=== PATIENT | female | born 1965 | race Caucasian/White ===

== ENCOUNTER 2022-11-03 09:26 | Outpatient (CLI) | payer BC, SELFPAY | END 2022-11-03 09:27 | disposition home or self-care (01) | PROVIDERS: Visit Provider Family Medicine | DX: M53.3 Sacrococcygeal disorders, not elsewhere classified (principal) | CPT/HCPCS: 27096; J0702; Q9966 ==

== ENCOUNTER 2024-08-10 13:27 | Outpatient (CLI) | payer BC, SELFPAY ==
--- NOTE | 2024-08-10 13:45 | MR_ITS ---
[facility] [address] [facility] [address] Phone:?[phone] Fax:?[phone] Referring Physician Information: Tobi Rodriguez M.D. [address] [facility] [address] Phone:?[phone] Fax:?[phone] Patient:Le Larson Eda.Raquel.B:?1965 Sex:?Female Phone:?[phone] [facility] MRN:?[id number] Exam Date:?08/10/2024 EXAM: MRI of the RIGHT SHOULDER, without contrast CLINICAL: Evaluate for rotator cuff tear. COMPARISONS: MRI 03/01/18. TECHNICAL: Multiplanar multisequence MRI of the right shoulder was obtained. SEDATION: None. CONTRAST: None. FINDINGS: Rotator cuff: Supraspinatus/Infraspinatus: There is full-thickness tearing of the distal supraspinatus tendon with retraction of torn tendon fibers to the level of the mid to medial humeral head as seen on coronal series 5 images 10-12. Tendinosis and partial tearing involves the remaining posterior supraspinatus tendon on coronal series 5 image 13-14. There is moderate tendinosis of the distal infraspinatus tendon. Mild partial tearing of the anterior infraspinatus tendon with small adjacent ganglion cyst formation as seen on sagittal series 9 images 10-12. No significant fatty atrophy of the muscle belly. Teres minor: No tendinosis, tear or atrophy. Subscapularis: There is mild to moderate tendinosis and mild partial interstitial tearing of the subscapularis tendon. No significant fatty atrophy of the muscle belly. Bursae: Subacromial-subdeltoid: Increased bursal fluid may be secondary to full- thickness rotator cuff tendon tearing. Subcoracoid: No significant bursal fluid. Coracoacromial arch: Acromion morphology: Type II. No os acromiale. Acromiohumeral space: Within normal limits. Coracohumeral space: Within normal limits. Biceps tendon, long head: Dislocated medially from the bicipital groove onto the lesser tuberosity of the proximal humerus. No evidence of tendon rupture. Glenohumeral joint: Relatively small glenohumeral joint effusion is present with mild synovitis involving the axillary recess. Articular cartilage: No significant chondral loss. Capsule: No convincing evidence of capsular thickening or injury. Labrum: There is mild focal tearing of the posterior labrum on axial series 4 image 16. No additional discrete labral tear identified. No perilabral cyst identified. Bones: No suspicious marrow signal alteration, fracture or dislocation. Acromioclavicular joint: Mild degenerative hypertrophic change. No AC joint injury/widening. There is an apparent focal pulmonary nodule involving the peripheral anterior upper lobe of the right lung on axial series 3 image 16. IMPRESSION: 1. Full-thickness tearing of the distal supraspinatus tendon with retraction of torn tendon fibers to the level of the mid to medial humeral head. Tendinosis and partial tearing involving the remaining posterior supraspinatus tendon. There is moderate tendinosis of the distal infraspinatus tendon with mild partial tearing and small adjacent ganglion cyst formation involving the anterior infraspinatus tendon. 2. Mild to moderate tendinosis and mild partial interstitial tearing of the subscapularis tendon. 3. Medial dislocation of the long head biceps tendon from the bicipital groove onto the lesser tuberosity of the proximal humerus. 4. Mild focal tearing of the posterior labrum. 5. Mild degenerative hypertrophic change involving the AC joint. 5. Apparent focal pulmonary nodule involving the peripheral anterior upper lobe of the right lung. Recommend follow-up with dedicated chest CT for further evaluation. JCZ Electronically signed on 08/10/2024 3:39:00 PM by Jeb Alexandre D.O.
== END 2024-08-10 13:28 | disposition home or self-care (01) ==
LOC: MRI 13:28
PROVIDERS: PCP Family Medicine; Visit Provider Orthopaedic Surgery Sports Medicine
DX: M75.111 Incomplete rotator cuff tear or rupture of right shoulder, not specified as traumatic (principal); M75.101 Unspecified rotator cuff tear or rupture of right shoulder, not specified as traumatic; S43.084A Other dislocation of right shoulder joint, initial encounter; R91.8 Other nonspecific abnormal finding of lung field
CPT/HCPCS: 73221

== ENCOUNTER 2024-08-18 14:48 | Outpatient (CLI) | payer BC, SELFPAY ==
--- NOTE | 2024-08-18 15:00 | CRLHL7_ITS ---
For Patients: As a result of the Century Cures Act, medical imaging exams and procedure reports are released immediately into your electronic medical record. You may view this report before your referring provider. If you have questions, please contact your health care provider. INDICATION: Right upper lobe pulmonary nodule seen on shoulder MRI TECHNIQUE: CT chest without contrast. COMPARISON: 08/10/2024 shoulder MRI. FINDINGS: Lungs and pleura: 5 mm nodule anterior right upper lobe image 15 series 3. This corresponds to the MRI finding. No other nodules. No pleural effusions, pleural thickening, or pneumothorax. Heart and vasculature: Heart size is normal. Thoracic aorta and pulmonary artery are normal in caliber. Lymph nodes/mediastinum: No mediastinal, hilar, or axillary adenopathy. Thyroid gland is normal. Chest wall: No masses. Upper abdomen: Normal. Bones: Unremarkable for age. IMPRESSION: 4 mm solitary right upper lobe pulmonary nodule. Please see follow-up guidelines below. [employer] GUID[employer]IN[employer] - SOLID NODULES: SINGLE LOW RISK - nodule less than 6 mm: No routine follow-up. - nodule 6-8 mm: CT at 6-12 months, then consider CT at 18-24 months. - nodule greater than 8 mm: Consider CT at 3 months, PET/CT or tissue sampling. SINGLE HIGH RISK - nodule less than 6 mm: Optional CT at 12 months. - nodule 6-8 mm: CT at 6-12 months, then CT at 18-24 months. - nodule greater than 8 mm: Consider CT at 3 months, PET/CT or tissue sampling. Please note that all CT scans at this facility use dose modulation, iterative reconstruction, and/or weight-based dosing when appropriate to reduce radiation dose to as low as reasonably achievable. Dictated by Frederick Kim MD @ 08/22/2024 9:05:07 AM (Electronically Signed)
== END 2024-08-18 14:49 | disposition home or self-care (01) ==
LOC: CT 14:49
PROVIDERS: PCP Family Medicine; Visit Provider Orthopaedic Surgery Sports Medicine
DX: R91.1 Solitary pulmonary nodule (principal); R91.8 Other nonspecific abnormal finding of lung field
CPT/HCPCS: 71250

== ENCOUNTER 2024-10-04 06:04 | Day surgery (SDC) | payer BC, SELFPAY ==
[2024-10-04] VITALS (20 sets, daily range): BP systolic 89–110; BP diastolic 52–76; PULSE 53–77; RESP 14–16; TEMP 36–36.9; O2SAT 92–99; BMI 30.1
[2024-10-04] MEDS: 0.9 % SODIUM CHLORIDE 500 ML 500 ML 100 ML IV (06:45)
[2024-10-04] MEDS: SODIUM CHLORIDE 0.9 % (FLUSH) 10 ML SYRINGE IVF (06:45)
--- NOTE | 2024-10-04 06:58 | SUR.PREOP ---
TIME?OUT:?0703 PT/RN/MDA?VERIFICATION?OF?SURGICAL?SITE,?PROCEDURE,?AND?CONSENT OBTAINED?PRIOR?TO?INVASIVE?PROCEDURE.
[2024-10-04] MEDS: fentaNYL 100 MCG/2 ML inj IVP (07:04)
[2024-10-04] MEDS: MIDAZOLAM HCL 1 MG/ML inj IVP (07:04)
--- NOTE | 2024-10-04 07:20 | W.PM.NB ---
Nerve Block Nerve Block Time Seen by Provider: 07:07 Date Seen: 10/04/24 Type of block requested by surgeon for post-operative analgesia: supraclavicular Side: right Time out performed: Yes Verification of patient name: Yes Verification of date of : Yes Site marking: site marked Name of person performing procedure: Neo Continuous monitoring Was continuous monitoring of O2 sat, B/P, classroom monitor, recorded every 15 minutes?: Yes Procedure Checklist: sterile prep, needles and gloves Ultrasound guided. Images saved: Yes Medications given in 5ml increments after negative aspiration: Ropivicaine %: 0.5 mL: 20 Needle gauge: 22 Precedex (mcg): 25 Patient tolerated procedure well: Yes Block Charges Block Charge (with Pro Fee): Brachial Plexus Use of Ultrasound Machine for Block: Yes- US Guidance/pain block
--- NOTE | 2024-10-04 07:20 | W.ANESCHARGE ---
Anesthesia Charges Start Date/Time Anesthesia Start Date: 10/04/24 Anesthesia Start Time: 07:34 Stop Date/Time Anesthesia Stop Date: 10/04/24 Anesthesia Stop Time: 10:04
--- NOTE | 2024-10-04 07:35 | W.PM.H&PU ---
History & Physical Update History & Physical Update H&P Reviewed and patient assessed: No changes noted
[2024-10-04] MEDS: CEFAZOLIN 2 GM in 0.9 % SODIUM CHLORIDE Mini-bag 100 ML IVPB (07:46)
[2024-10-04] MEDS: EPINEPHrine 1 MG in SODIUM CHLORIDE IRRIG SOLUTION 3,000 ML 9003 MG IRRIGATION ×5 (08:05→09:20)
--- NOTE | 2024-10-04 09:29 | PM.ORPRC ---
Procedure Note Date of procedure: 10/04/24 Procedure: PREOPERATIVE DIAGNOSES: 1. Right shoulder rotator cuff tear. 2. Right shoulder long head of the biceps dislocation out of the bicipital groove 3. Right shoulder anterior labral tearing 4. Right shoulder subacromial impingement syndrome. POSTOPERATIVE DIAGNOSES: 1. Right shoulder rotator cuff tear. 2. Right shoulder long head of the biceps dislocation out of the bicipital groove 3. Right shoulder anterior labral tearing 4. Right shoulder subacromial impingement syndrome. NAME OF OPERATION: 1. Right shoulder arthroscopic rotator cuff repair - upper border subscapularis and full-thickness supraspinatus as well as anterior portion infraspinatus. 2. Right shoulder arthroscopic long head of biceps tenodesis 3. Right shoulder arthroscopic limited glenohumeral debridement 4. Right shoulder arthroscopic bursectomy, subacromial decompression/partial acromioplasty. SURGEON: Tobi Rodriguez MD OFFICE ASSISTANT: Fredy Luciano PA-C. Of note, a skilled business services assistant was critical for this case to aide in patient positioning, suture manipulation, arm positioning, instrument positioning, and closure. ANESTHESIA: General plus preoperative supraclavicular block. EBL: 25 mL IMPLANTS: Arthrex 4.75 mm BioComposite SwiveLock suture anchor (x2) Arthrex 5.5 mm BioComposite SwiveLock suture anchor (x2); Arthrex 2.6 mm knotless FiberTak RC (x2) COMPLICATIONS: None evident INDICATIONS: The patient is a pleasant, 56-year-old female who has experienced right shoulder pain that has been increasing in recent time. Physical exam and imaging were consistent with a rotator cuff tear. Given their findings, as well as the weakness and pain, and inadequate response to nonoperative management, recommendation was made for surgery. FINDINGS: Exam under anesthesia revealed stable shoulder with excellent range of motion. The diagnostic arthroscopy revealed healthy chondral surfaces of the glenohumeral joint. The Subscapularis tendon was intact and with a healthy attachment. The long head of the biceps tendon was intact. The superior rotator cuff tendon was found to be torn full thickness at the anterior margin measuring approximately 12 mm in greatest dimension with minimal retraction. The labrum was degeneratively frayed in the anterior and superior aspects. No loose bodies were identified within the pouch or subscapularis recess. PROCEDURE: Following a thorough discussion of risks, benefits, and alternatives, consent was obtained and the right shoulder was marked. The patient was brought to the operating room and placed supine on the operating table. Induction of anesthesia was completed after preoperative supraclavicular block was administered in preop holding. Appropriate time out was performed identifying proper patient, site, and procedure. 2 g IV Ancef was administered within 1 hour of incision preoperatively. The right upper extremity was prepped and draped in the appropriate sterile fashion using ChloraPrep prep. This was after the patient was positioned in the beach chair with their head in neutral alignment and all bony prominences well padded. The shoulder was insufflated with 20mL of normal saline via an 18g spinal needle from a posterior approach. An 11 blade skin incision allowed a blunt trochar to be inserted and diagnostic arthroscopy to be performed with the findings as noted above. An anterior portal was established with an outside in technique. This allowed the probe to be inserted and confirm the diagnostic arthroscopic findings. The shaver was then inserted and allowed debridement of the anterior and superior labrum. Additionally, the long of the biceps was dislocated out of the bicipital groove and thus a biceps tenodesis was performed. 2.6 mm FiberTak RC was utilized in the bicipital groove after debriding the groove and the tendon. The knotless mechanism was engaged and secured the tendon very strongly. The FiberTape was also passed through the tendon just slightly distal and tied for a secondary fixation. The stump was debrided with a shaver. Following this, the upper border subscapularis was repaired after debriding the lesser tuberosity with the shaver and Whitetail cautery. Subscapularis was captured in horizontal mattress fashion with a fiber tape suture. The tails were brought to a single anchor in the lesser tuberosity with excellent reapproximation of the subscap tendon and good excursion/tension. Thereafter, the subacromial space was entered. Here, a complete bursectomy and partial acromioplasty/subacromial decompression was performed with a combination of radiofrequency ablator, the shaver, and a 5.5 mm bur. Further inspection of the supraspinatus and infraspinatus rotator cuff was performed. This identified the tear as noted above. The margins of the tear were debrided, and the greater tuberosity was debrided with a combination of the apollo cautery, shaver, and bur on reverse setting. After gentle decortication, a speed bridge configuration with a medial anthony was planned. 2 medial anchors were placed and the sutures were passed through the rotator cuff with a fiber link (1 was a 4.75 mm BioComposite SwiveLock suture anchor and 1 once a 2.6 mm knotless FiberTak RC). The knotless suture tails were then retrieved, crossed, and cinched down for the medial anthony purpose. A tail from each of the medial row anchor FiberTapes were then retrieved and brought to a lateral row anchor. Excellent reapproximation of the tissue to the greater tuberosity was achieved with broad footprint compression. A small dog ear in the posterior aspect was repaired with the eyelet sutures from the posterolateral anchor. In additionally, a small dog ear from the anterior portion was secured with a FiberLink into the anterior lateral row anchor. The rotator cuff showed excellent reapproximation of the greater tuberosity with good security upon probing. Prior to anchor sales route driver removal, the eyelet sutures were tugged on for each anchor and found that the anchor had excellent stability within the bone. The shoulder was placed through range of motion and found to be stable. The rotator cuff was re-probed and found to be stable. Instruments were removed. Excess fluid was drained, closure performed with 4-0 Monocryl and Steri-Strips. Dressings were applied. Sling was applied. The patient was awoken from anesthesia and transferred to the PACU in stable condition. A skilled business services assistant was critical for this case to aid in patient positioning, limb positioning, skill to manipulate arthroscopic instruments and camera, suture management, patient safety, and closure. PLAN: 1. Elbow, forearm, wrist and digit range of motion as tolerated. 2. Encouraged ice. 3. Oxycodone for pain as needed. 4. Sling at all times except for ROM and showering. 5. Follow up with PA visit in 1-2 weeks for wound check. Initiate physical therapy following that visit for passive range of motion. Initiate active assisted range of motion at 6 weeks. May do pendulums now.
[2024-10-04] MEDS: EPINEPHrine 1 MG in SODIUM CHLORIDE IRRIG SOLUTION 3,000 ML 1003 MG IRRIGATION (09:35)
--- NOTE | 2024-10-04 10:11 | W.ANESCHARGE ---
Anesthesia Charges Start Date/Time Anesthesia Start Date: 10/04/24 Anesthesia Start Time: 07:34 Stop Date/Time Anesthesia Stop Date: 10/04/24 Anesthesia Stop Time: 10:04
--- NOTE | 2024-10-04 11:50 | SUR.PHASEI ---
@1032: 40cc NS remaining in bag, into pacu phase 1 with 50cc
== END 2024-10-04 12:25 | disposition home or self-care (01) ==
LOC: OR 06:07
PROVIDERS: PCP Family Medicine; Visit Provider Orthopaedic Surgery Sports Medicine
PROC: (CPT 29805; principal; 2024-10-04 07:45)
DX: M75.121 Complete rotator cuff tear or rupture of right shoulder, not specified as traumatic (principal); S46.111A Strain of muscle, fascia and tendon of long head of biceps, right arm, initial encounter; S43.431A Superior glenoid labrum lesion of right shoulder, initial encounter; M75.41 Impingement syndrome of right shoulder; G89.18 Other acute postprocedural pain
CPT/HCPCS: 29827; 29828; 29826; 29822; 01630; 64415; 76942; C1713; J0171; J0690; J1100; J2250; J2371; J2405; J2704; J2710; J2795; J3010; J7030; L3670

== ENCOUNTER 2025-08-20 09:22 | Day surgery (SDC) | payer BC, SELFPAY ==
[2025-08-20] MEDS: LACTATED RINGERS 1000 ML 1,000 ML 100 ML IV (09:30)
[2025-08-20 09:49] VITALS: BP 107/68; PULSE 59; RESP 16; TEMP 36.6; O2SAT 97; BMI 28.8
[2025-08-20] MEDS: SODIUM CHLORIDE 0.9 % (FLUSH) 10 ML SYRINGE IVF (09:55)
[2025-08-20] MEDS: BUPIVACAINE 0.25% 30 ML INJECTION (11:15)
--- NOTE | 2025-08-20 11:20 | P.ANES_ITS ---
Anesthesia Charges Start Date/Time Anesthesia Start Date: 08/20/25 Anesthesia Start Time: 11:07 Stop Date/Time Anesthesia Stop Date: 08/20/25 Anesthesia Stop Time: 12:50 Coding CPT Codes CPT Codes: ANESTH LOWER LEG BONE SURG - 35900 ([id number]) P2 - PATIENT W/MILD SYST DISEASE, QK - THROUGH FREIGHT ENGINEER 2-4 CNCRNT ANES PROC, QX - REGULATOR PIN INSERTER SVC W/ MD MED DIRECTION
--- NOTE | 2025-08-20 11:20 | W.ANESCHARGE ---
Anesthesia Charges Start Date/Time Anesthesia Start Date: 08/20/25 Anesthesia Start Time: 11:07 Stop Date/Time Anesthesia Stop Date: 08/20/25 Anesthesia Stop Time: 12:50 Coding CPT Codes CPT Codes: ANESTH LOWER LEG BONE SURG - 39959 ([id number]) P2 - PATIENT W/MILD SYST DISEASE, QK - CPHT 2-4 CNCRNT ANES PROC, QX - THREAT MONITORING ANALYST SVC W/ MD MED DIRECTION
[2025-08-20 12:50] VITALS: BP 109/69; PULSE 62; RESP 16; TEMP 36.7; O2SAT 98
--- NOTE | 2025-08-20 13:04 | P.ANES_ITS ---
Anesthesia Charges Start Date/Time Anesthesia Start Date: 08/20/25 Anesthesia Start Time: 11:07 Stop Date/Time Anesthesia Stop Date: 08/20/25 Anesthesia Stop Time: 12:50 Coding CPT Codes CPT Codes: ANESTH LOWER LEG BONE SURG - 19021 ([id number]) P2 - PATIENT W/MILD SYST DISEASE, QK - IT SUPPORT MANAGER 2-4 CNCRNT ANES PROC, QX - PEDIATRIC RADIOLOGIST SVC W/ MD MED DIRECTION
--- NOTE | 2025-08-20 13:04 | W.ANESCHARGE ---
Anesthesia Charges Start Date/Time Anesthesia Start Date: 08/20/25 Anesthesia Start Time: 11:07 Stop Date/Time Anesthesia Stop Date: 08/20/25 Anesthesia Stop Time: 12:50 Coding CPT Codes CPT Codes: ANESTH LOWER LEG BONE SURG - 85514 ([id number]) P2 - PATIENT W/MILD SYST DISEASE, QK - TRANSLATOR AND INTERPRETER 2-4 CNCRNT ANES PROC, QX - TICKET SALES SUPERVISOR SVC W/ MD MED DIRECTION
[2025-08-20 13:05] VITALS: BP 104/65; PULSE 58; RESP 16; O2SAT 100
[2025-08-20 13:24] VITALS: BP 97/55; PULSE 55; RESP 16; O2SAT 98
[2025-08-20] MEDS: OxyCODONE/APAP 5-325 TABLET PO (13:24)
[2025-08-20 13:39] VITALS: BP 107/64; PULSE 53; RESP 16; TEMP 36.7; O2SAT 99
--- NOTE | 2025-08-20 14:11 | SUR.PHASEII ---
verified with Dr. West that he did want pt to be taking Aspirin as per his usual routine orders. Added instruction to dc orders
--- NOTE | 2025-08-20 17:18 | W.PM.PODPROC ---
Date of Procedure: 08/20/25 Surgeon: Micah West DPM Pre-op Diagnosis: 1. Hallux valgus with bunion left 2. DJD left foot 3. Capsulitis left foot Post-op Diagnosis: 1. Hallux valgus with bunion left 2. DJD left foot 3. Capsulitis left foot Type of Procedure: 1. First MPJ fusion left 2. Steroid injection left 4th and 5th metatarsal cuboid joint Indications: Patient has been an ongoing pain left foot she has elected to have surgical correction of her bunion deformity. She has arthritic changes to the foot and 1st MPJ fusion with a deal for. She also would like steroid injection into the 4th and 5th metatarsal cuboid joints. I reviewed the procedure, recovery, expectations and potential complications. These include but are not limited to: Poor wound healing, infection, under correction, over correction, nonunion, malunion, delayed union, hardware failure or irritation, nerve injury, complex regional pain syndrome, deep venous thrombosis, pulmonary embolism, possible . She understands risks written consent was obtained. Site marked. Procedure Description: Patient brought the operating room placed supine position on operating table that time IV sedation was initiated local anesthetic injected in the left foot. Using C-arm guidance to mL of a 1:1 mixture of Depo-Medrol 40 mg and quarter % Marcaine plain was injected into the 4th and 5th metatarsal cuboid joint. She was then prepped and draped in sterile fashion. Standard time-out protocol followed. Left foot was exsanguinated the tourniquet inflated. Dorsal linear incision was made over the 1st metatarsophalangeal joint. The incision was carried down through skin subcutaneous tissues. A linear capsular incision was made. Capsular tissues reflected away from the 1st metatarsal head and proximal phalangeal base. The enlarged medial prominence was resected with a sagittal saw. A guide pin was then placed in the 1st metatarsal head and an 18 mm Reamer was used to remove the cartilage and subchondral bone. Guide pin was removed and placed in the base of the proximal phalanx and the corresponding 18 mm Reamer was used to remove the cartilage and subchondral bone. Area was then thoroughly irrigated normal sterile saline. The opposing fusion surfaces were then fenestrated with a K-wire. Weightbearing was simulated and the hallux was positioned in the appropriate alignment. It was then temporarily fixated with a K-wire. 3.0 cannulated headless screw was inserted from distal medial to proximal lateral across the fusion site. Excellent compression noted. Dorsal 1st MPJ fusion plate was then applied. 3.0 mm locking screws x3 were placed distal. 3.0 mm locking screws x2 were placed proximal. Additional 3.0 mm nonlocking screw placed proximal. Fusion site was then remodeled medially with a rotary bur. Wound was thoroughly irrigated normal sterile saline. C-arm images confirmed excellent position. Redundant capsular tissue was excised and repaired with 3-0 Vicryl. Subcutaneous tissues reapproximated 4-0 Monocryl and skin closed with 4-0 Prolene. Sterile dressing was applied. Tourniquet was released normal capillary fill time returned all digits. She was placed in a well-padded short cam boot. She was transferred from OR to PACU vital signs stable vascular status intact to the left foot. She was given both written and verbal postoperative instructions. She is weight-bearing as tolerated to the heel. She has a knee walker. She was given oxycodone for pain. She will follow up in clinic in 2-3 days. Anesthesia: MAC and local Hemostasis: ankle Estimated blood loss (mL): 2 Provider Operated C-arm: C-arm fluoroscopy operated by Micah West DPM, for 1st MPJ fusion left foot. Fifteen C-arm spot images were obtained. Fluoroscopy time was 00.00.11. Implants: Arthrex 1st MPJ fusion plate x1, 3.0 mm locking screws x5, 3.0 mm nonlocking screw x1, 3.0 headless cannulated screw x1. Specimens: none sent Disposition: same day
== END 2025-08-20 14:05 | disposition home or self-care (01) ==
PROVIDERS: PCP Family Medicine; Visit Provider Podiatrist
PROC: (CPT 28740; principal; 2025-08-20 10:45)
DX: M20.12 Hallux valgus (acquired), left foot (principal); M21.612 Bunion of left foot; M19.072 Primary osteoarthritis, left ankle and foot; M77.52 Other enthesopathy of left foot and ankle
CPT/HCPCS: 28750; 20600 ×2; 01480; 73620; 76000; A9270; C1713; J0665; J0690; J1010; J1100; J2250; J2371; J2405; J2704; J3010; J7120